=== PATIENT | male | born 1995 | race Caucasian/White ===

== ENCOUNTER 2017-08-14 11:27 | Emergency (ER) | payer SELFPAY ==
[~2017-08-14] VITALS: Ht 185.4 cm; Wt 72.7 kg
[~2017-08-14 11:27] MED LIST: ZOFRAN 4MG T4 MG/TAB PO
[2017-08-14 11:31] VITALS: BP 120/59; PULSE 53; TEMP 97.9
== END 2017-08-14 13:11 | disposition home or self-care (01) ==
LOC: COL.ER 11:27
DX: M25.511 Pain in right shoulder (principal); X50.3XXA Overexertion from repetitive movements, initial encounter

== ENCOUNTER 2021-10-26 20:20 | Emergency (ER) | payer SELFPAY ==
[~2021-10-26] VITALS: Ht 200.7 cm; Wt 81.8 kg
[2021-10-26 20:42] VITALS: TEMP 97.7
[2021-10-26 21:43] VITALS: BP 122/92; PULSE 65
== END 2021-10-26 21:42 | disposition home or self-care (01) ==
LOC: COL.ER 20:20
DX: S29.9XXA Unspecified injury of thorax, initial encounter (principal); W06.XXXA Fall from bed, initial encounter